=== PATIENT | female | born 1965 | race African-American/Black ===

== ENCOUNTER 2025-05-20 01:26 | Emergency (ER) | payer OTHER, MEDICAID ==
[~2025-05-20] VITALS: Ht 162.6 cm; Wt 107.0 kg
[2025-05-20 01:29] VITALS: O2SAT 99
[2025-05-20] MEDS: HYDROCODONE/ACETAMINOPHEN 5/325MG TABLET PO ONE (03:22)
[2025-05-20 03:51] LABS: CREATININE 0.8 mg/dL (0.6-1.0); UREA NITROGEN BLOOD 14 mg/dL (9-23)
[2025-05-20] MEDS ORDERED: ACET-2708 MT (04:26)
[2025-05-20] MEDS ORDERED: CYCL10TA21 MT (04:26)
[2025-05-20 04:48] VITALS: BP 137/77; PULSE 82; RESP 20; TEMP 36.8; O2SAT 99
== END 2025-05-20 04:48 | disposition home or self-care (01) ==
LOC: ER 01:26
DX: R25.2 Cramp and spasm (principal); I10 Essential (primary) hypertension; J44.89 Other specified chronic obstructive pulmonary disease; Z88.6 Allergy status to analgesic agent
CPT/HCPCS: 36415; 80048; 93970; 99284